=== PATIENT | male | born 1960 ===

== ENCOUNTER 2023-01-29 10:24 | Day surgery (SDC) | payer BC ==
[2023-01-29] MEDS ORDERED: Ringers Lactate 1,000 ML IV ONE (11:16)
[2023-01-29] MEDS ORDERED: propofoL 200 MG/20 ML VIAL IV ONE (14:54)
[2023-01-29] MEDS ORDERED: LIDOCAINE 2% INJ, MPF 2 ML 3 ML ONE (14:58)
[2023-01-29 16:23] VITALS: TEMP 97.6; O2SAT 100
[2023-01-29 16:24] VITALS: BP 123/81
--- NOTE | 2023-02-01 13:12 | EKG ---
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
== END 2023-01-29 16:36 | disposition home or self-care (01) ==
LOC: OR 10:24
PROVIDERS: ATTEND Surgery
PROC: 0DB58ZX Excision of Esophagus, Via Natural or Artificial Opening Endoscopic, Diagnostic (ICD-10-PCS; 2023-01-29)
PROC: 0DB48ZX Excision of Esophagogastric Junction, Via Natural or Artificial Opening Endoscopic, Diagnostic (ICD-10-PCS; 2023-01-29)
PROC: 0DJD8ZZ Inspection of Lower Intestinal Tract, Via Natural or Artificial Opening Endoscopic (ICD-10-PCS; 2023-01-29)
PROC: 0DB98ZX Excision of Duodenum, Via Natural or Artificial Opening Endoscopic, Diagnostic (ICD-10-PCS; principal; 2023-01-29 12:00)
PROC: 0DB68ZX Excision of Stomach, Via Natural or Artificial Opening Endoscopic, Diagnostic (ICD-10-PCS; 2023-01-29 12:00)
DX: Z12.11 Encounter for screening for malignant neoplasm of colon (principal); K57.30 Diverticulosis of large intestine without perforation or abscess without bleeding; K64.8 Other hemorrhoids; K21.9 Gastro-esophageal reflux disease without esophagitis; K44.9 Diaphragmatic hernia without obstruction or gangrene; K22.2 Esophageal obstruction; K26.3 Acute duodenal ulcer without hemorrhage or perforation; K29.30 Chronic superficial gastritis without bleeding
CPT/HCPCS: 43239; 93005; 80048; 36415; 88312; 88305; J2704; J7120